=== PATIENT | male | born 2005 ===

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

== ENCOUNTER 2025-03-05 10:20 | Emergency (ER) | payer BC, SELFPAY ==
--- OUTSIDE RECORDS SUMMARY | 2007-04-06 13:00 | XMS_ITS | Encounter Summary ---
Author Organization [facility] ital Address [address] [place] [address] Care Team Providers Care Airline Operations Agent Name Role Phone Unavailable Primary Care Provider Unavailabl e Reason for Visit * Reason Comments Other AUTISM EVAL; Dept = [facility] Encounter Details Date Type Department Care Team (Late st Contact Info) Description 04/06/2007 11:00 AM [facility] Hospital Encounter H INACTIVE OUT [address] [place] [address] Pb Canas MD [address] Department of Pediatrics [address] [place] [address] Social History Tobacco Use Types Packs/Day Years Used Date Smoking Tobacco: Never Smokeless Tobacco: Never Alcohol Use Standard Drinks/Week Comments Not Asked 0 (1 standard drink = 0.6 oz pur e alcohol) [facility] Answer Date R ecorded School performance Not on file 01/04/2024 Issues with bullying or cyberbullying Not on louisa e 01/04/2024 School Other (not found in this list) 0 01/04/2024 Education services Not on file 01/04/2024 Grade level College 01/04/2024 Extracurricular activities Not on file 01/03 Sexual Activity Answer Date Recorded Has had sex or sexual contac t for money, place to stay, clothing/jewelry, drugs, pimp/partner, avoid being beaten? Not on file 02/08/2020 How often are condoms used Not on file 02/07 Has had sexually transmitted infections Not on f ile 02/08/2020 Has pt. ever had sex? Not on file 02/08/2020 Currently sexually active? Not on file 02/07 Number of lifetime partners Not on file 01/20 CRAFFT v2.1 Substance and Alcohol Use Screening Tool Answer Date Recorded Drank alcohol (last 12 months) Not on file 0 01/29/2023 Used marijuana product (last 12 months) Not on f ile 01/29/2023 Used other substances to get high (in last 12 mo nths) Not on file 01/29/2023 Has ridden in a CAR driven b y someone that was high or had been using drugs or alcohol Not on file 01/29/2023 Has used alcohol or drugs to RELAX Not on file 01/29/2023 Has used alcohol or drugs while ALONE Not on louisa e 01/29/2023 Has FORGOTTEN things while using alcohol or drug s Not on file 01/29/2023 FAMILY/FRIENDS have said to cut down on drinking or drug use Not on file 01/29/2023 Has gotten into TROUBLE while using alcohol or d rugs Not on file 01/29/2023 Tobacco & Vaping Answer Date Recorded Smoking Tobacco Use Never 02/08/2020 Smokeless Tobacco Use Never 02/08/2020 Vaping Use Not on file 02/08/2020 [facility] Answer Date Recorded Always wears a helmet when riding wheeled vehicl e? Yes 04/05/2020 Is there a cover/fence for pool/hot tub? Not on file 04/05/2020 Does the patient spend time in home where a gun is kept? No 04/05/2020 Are firearms secured in a safe place? Not on louisa e 04/05/2020 Always wears a seatbelt / car seat? Yes 04/05/2020 If your home has more than o ne floor, are there safety guards on the windows and godinez for the stairs Not on file 020 Are your medications stored in a safe, secure lo cation? Not on file 04/05/2020 Has patient ever witnessed o r been a victim of abuse or violence? No 04/05/2020 Parents marital status Not on file 0 Depression ([facility]) Answer Date Recorded Suicide/self harm diagnosis Not on file 11/20 Depression diagnosis Not on file 12/03/2023 Last High Risk PHQ (20+) Not on file 024 Last Medium Risk PHQ (10-19) Not on file Last Low PHQ (<10) Not on file 12/03/2023 Initial Screening Score (PHQ2) 0 0 12/03/2023 Sex and Gender Information Value Date Recorded Sex Assigned at Not on file Legal Sex Male 11:03 PM PST Gender Identity Not on file Sexual Orientation Not on file COVID-19 Exposure Response Date Recorded In the last 10 days, have yo u been in contact with someone who was confirmed or suspected to have Coronavirus/COVID-19? No / Unsure 05/19/2022 7:46 AM PST documented as of this encounter Plan of Treatment Not on file documented as of this encounter Visit Diagnoses Not on filedocumented in this encounter Additional Health Concerns Infection Onset Date Last Indicated Resolved Time COVID-19 Rule-Out 12/09/2019 12/09/2019 12/09/2019 4:21 PM PDT documented as of this encounter
--- OUTSIDE RECORDS SUMMARY | 2007-04-14 10:38 | XMS_ITS | Encounter Summary ---
[facility] ital Address [address] [place] [address] Care Team Providers Care Cna Name Role Phone Unavailable Primary Care Provider Unavailabl e Reason for Visit * Reason Comments Other SPEECH IMP Encounter Details Date Type Department Care Team (Late st Contact Info) Description 04/14/2007 8:38 AM PDT Hospital Encounter [facility] Main [address] [place], [place] [phone] Kesha Ricketts SP [address] [place], [place] [phone] (Fax) Social History Tobacco Use Types Packs/Day Years Used Date Smoking Tobacco: Never Smokeless Tobacco: Never Alcohol Use Standard Drinks/Week Comments Not Asked 0 (1 standard drink = 0.6 oz pur e alcohol) [facility] Answer Date R ecorded School performance Not [...] to get high (in last 12 mo nt) Not on file 01/29/2023 Has ridden in [...] Vaping Use Not on file 02/08/2020 Safety ([facility]) Answer Date Recorded Always wears a helmet [...] marital status Not on file 0 Depression ([facility]) Answer Date Recorded Suicide/self harm diagnosis Not [...]
--- OUTSIDE RECORDS SUMMARY | 2007-04-29 19:05 | XMS_ITS | Encounter Summary ---
Author Organization [facility] ital Address [address] [place] [address] Care Team Providers Care Bun Machine Operator Name Role Phone Unavailable Primary Care Provider Unavailabl e Reason for Visit * Reason Comments Other SPEECH IMP Encounter Details Date Type Department Care Team (Late st Contact Info) Description 04/29/2007 4:05 PM [facility] Hospital Encounter [facility] Main [address] [place], [place] [phone] Solange Campos (Inactive), SP [address] [place], [place] [phone] (Fax) Social History Tobacco Use Types Packs/Day Years Used Date Smoking Tobacco: Never Smokeless Tobacco: Never Alcohol Use Standard Drinks/Week Comments Not Asked 0 (1 standard drink = 0.6 oz pur e alcohol) Patient [facility] Answer Date R ecorded School performance Not [...] Vaping Use Not on file 02/08/2020 Safety ([facility] Answer Date Recorded Always wears a helmet [...] marital status Not on file 0 Depression ([facility] Answer Date Recorded Suicide/self harm diagnosis Not [...]
--- OUTSIDE RECORDS SUMMARY | 2007-05-03 13:30 | XMS_ITS | Encounter Summary ---
Author Organization [facility] ital Address [address] [place] [address] Care Team Providers Care Textile Machine Mechanic Name Role Phone Unavailable Primary Care Provider Unavailabl e Reason for Visit * Reason Comments Other SPEECH IMP Encounter Details Date Type Department Care Team ([facility] st Contact Info) Description 05/03/2007 10:30 AM [facility] Hospital Encounter Speech-Language Pathology [address] Miranda [address] [place] [address] Solange Campos (Inactive), SP [address] [place], [place] [phone] (Fax) Social History Tobacco Use Types Packs/Day Years Used Date Smoking Tobacco: Never Smokeless Tobacco: Never Alcohol Use Standard Drinks/Week Comments Not Asked 0 (1 standard drink = 0.6 oz pur e alcohol) Patient Education ([facility]CD) Answer Date R ecorded School performance Not [...] Vaping Use Not on file 02/08/2020 [facility] Answer Date Recorded Always wears [...] marital status Not on file 0 Depression ([facility] Answer Date Recorded Suicide/self harm [...]
--- OUTSIDE RECORDS SUMMARY | 2007-05-06 19:00 | XMS_ITS | Encounter Summary ---
Author Organization [facility] ital Address [address] [place] [address] Care Team Providers Care Hotel General Manager Name Role Phone Unavailable Primary Care Provider Unavailabl e Reason for Visit * Reason Comments Other SPEECH IMP Encounter Details Date Type Department Care Team ([facility] st Contact Info) Description 05/06/2007 4:00 PM [facility] Hospital Encounter Speech-Language Pathology [address] Miranda [address] [place] [address] Solange Campos (Inactive), SP [address] [place], [place] [phone] (Fax) Social History Tobacco Use Types Packs/Day [...] Vaping Use Not on file 02/08/[address] [facility] Answer Date Recorded Always [...] marital status Not on file [address] Depression ([facility] Answer Date Recorded Suicide/self [...]
--- OUTSIDE RECORDS SUMMARY | 2007-05-10 13:30 | XMS_ITS | Encounter Summary ---
Author Organization [facility] ital Address [address] [place] [address] Care Team Providers Care Color Separation Photographer Name Role Phone Unavailable Primary Care Provider Unavailabl e Reason for Visit * Reason Comments Other SPEECH IMP Encounter Details Date Type Department Care Team ([place] [facility] st Contact Info) Description 05/10/2007 10:30 AM [facility] Hospital Encounter Speech-Language Pathology [address] Miranda [address] [place] [address] Solange Campos (Inactive), SP [address] [place], [place] [phone] (Fax) Social History Tobacco Use Types Packs/Day [...] Vaping Use Not on file 02/08/2020 [facility] Answer Date Recorded Always wears a helmet [...] marital status Not on file 0 Depression ([facility]) Answer Date Recorded Suicide/self harm diagnosis Not [...]
--- OUTSIDE RECORDS SUMMARY | 2007-05-12 18:30 | XMS_ITS | Encounter Summary ---
Author Organization [facility] ital Address [address] [place] [address] Care Team Providers Care Steaming Machine Operator Name Role Phone Unavailable Primary Care Provider Unavailabl e Reason for Visit * Reason Comments Other SPEECH IMP Encounter Details Date Type Department Care Team ([facility] st Contact Info) Description 05/12/2007 3:30 PM [facility] Hospital Encounter Speech-Language Pathology [address] Miranda [address] [place] [address] Solange Campos (Inactive), SP [address] [place], [place] [phone] (Fax) Social History Tobacco Use Types Packs/Day [...] Vaping Use Not on file 02/08/2020 [facility] Answer Date Recorded Always wears a [...] marital status Not on file 0 Depression ([facility] Answer Date Recorded Suicide/self harm diagnosis Not [...]
--- OUTSIDE RECORDS SUMMARY | 2007-05-24 13:30 | XMS_ITS | Encounter Summary ---
Author Organization [facility] ital Address [address] [place] [address] Care Team Providers Care Microfiche Duplicator Name Role Phone Unavailable Primary Care Provider Unavailabl e Reason for Visit * Reason Comments Other SPEECH IMPAIRMENT Encounter Details Date Type Department Care Team ([facility] st Contact Info) Description 05/24/2007 10:30 AM [facility] Hospital Encounter Speech-Language Pathology [address] Miranda [address] [place] [address] Solange Campos (Inactive), SP [address] [place], [place] [phone] (Fax) Social History Tobacco Use Types Packs/Day [...] Vaping Use Not on file 02/08/2020 [facility] Answer Date Recorded Always wears a [...] marital status Not on file 0 Depression ([facility]) Answer Date Recorded Suicide/self harm diagnosis [...]
--- OUTSIDE RECORDS SUMMARY | 2007-05-27 18:00 | XMS_ITS | Encounter Summary ---
Author Organization [facility] ital Address [address] [place] [address] Care Team Providers Care Duck Farmer Name Role Phone Unavailable Primary Care Provider Unavailabl e Reason for Visit * Reason Comments Other SPEECH IMPAIRMENT Encounter Details Date Type Department Care Team ([facility] st Contact Info) Description 05/27/2007 3:00 PM [facility] Hospital Encounter Speech-Language Pathology [address] [address] Solange Campos (Inactive), SP [address] [place], [place] [phone] (Fax) Social History Tobacco Use Types Packs/Day [...] Vaping Use Not on file 02/08/2020 [facility] Answer Date Recorded Always wears a [...] marital status Not on file 0 Depression ([facility] Answer Date Recorded Suicide/self harm diagnosis [...]
--- OUTSIDE RECORDS SUMMARY | 2007-05-31 13:30 | XMS_ITS | Encounter Summary ---
Author Organization [facility] ital Address [address] [place] [address] Care Team Providers Care Assembler Erector Name Role Phone Unavailable Primary Care Provider Unavailabl e Reason for Visit * Reason Comments Other SPEECH IMPAIRMENT Encounter Details Date Type Department Care Team ([facility] st Contact Info) Description 05/31/2007 10:30 AM [facility] Hospital Encounter Speech-Language Pathology [address] Miranda [address] [place] [address] Solange Campos (Inactive), SP [address] [place] [address] [phone] (Fax) Social History Tobacco Use Types Packs/Day [...] Vaping Use Not on file 02/08/2020 Safety [facility] Answer Date Recorded Always wears a helmet [...] marital status Not on file 0 Depression ([facility]) Answer Date Recorded Suicide/self harm diagnosis Not [...]
--- OUTSIDE RECORDS SUMMARY | 2007-06-03 18:00 | XMS_ITS | Encounter Summary ---
Author Organization [facility] ital Address [address] [place] [address] Care Team Providers Care Barytes Grinder Name Role Phone Unavailable Primary Care Provider Unavailabl e Reason for Visit * Reason Comments Other SPEECH IMPAIRMENT Encounter Details Date Type Department Care Team ([facility] st Contact Info) Description 06/03/2007 3:00 PM [facility] Hospital Encounter Speech-Language Pathology [address] [address] Solange Campos (Inactive), SP [address] [place], [place] [phone] (Fax) Social History Tobacco Use Types Packs/Day [...] Vaping Use Not on file 02/08/2020 Safety ([facility] Answer Date Recorded Always [...] marital status Not on file 0 Depression ([facility]) Answer Date Recorded Suicide/self [...]
--- OUTSIDE RECORDS SUMMARY | 2007-06-07 13:30 | XMS_ITS | Encounter Summary ---
Author Organization [facility] Address [address] [place] [address] Care Team Providers Care Burnishing Machine Operator Name Role Phone Unavailable Primary Care Provider Unavailabl e Reason for Visit * Reason Comments Other SPEECH IMPAIRMENT Encounter Details Date Type Department Care Team ([facility] st Contact Info) Description 06/07/2007 10:30 AM [facility] Hospital Encounter Speech-Language Pathology [address] Miranda [address] [place] [address] Solange Campos (Inactive), SP [address] [place], [place] [phone] (Fax) Social History Tobacco Use Types Packs/Day [...] Vaping Use Not on file 02/08/2020 Safety [facility] Answer Date Recorded Always wears a helmet [...] marital status Not on file 0 Depression ([facility]) Answer Date Recorded Suicide/self harm diagnosis Not [...]
--- OUTSIDE RECORDS SUMMARY | 2007-06-23 21:03 | XMS_ITS | Encounter Summary ---
Author Organization [facility] ital Address [address] [place] [address] Care Team Providers Care Scrap Charger Name Role Phone Unavailable Primary Care Provider Unavailabl e Reason for Visit * Reason Comments Other SPEECH IMPAIRMENT Encounter Details Date Type Department Care Team ([facility] st Contact Info) Description 06/23/2007 6:03 PM [facility] Hospital Encounter Speech-Language Pathology [address] Miranda [address] [place] [address] Solange Campos (Inactive), SP [address] [place], [place] [phone] (Fax) Social History Tobacco Use Types Packs/Day [...] Vaping Use Not on file 02/08/2020 Safety [facility] Answer Date Recorded Always wears a [...] marital status Not on file 0 Depression ([facility] Answer Date Recorded Suicide/self harm diagnosis [...]
--- OUTSIDE RECORDS SUMMARY | 2007-06-28 13:30 | XMS_ITS | Encounter Summary ---
Author Organization [facility] ital Address [address] [place] [address] Care Team Providers Care French Instructor Name Role Phone Unavailable Primary Care Provider Unavailabl e Reason for Visit * Reason Comments Other SPEECH IMPAIRMENT Encounter Details Date Type Department Care Team ([facility] st Contact Info) Description 06/28/2007 10:30 AM [facility] Hospital Encounter Speech-Language Pathology [address] Miranda [address] [place] [address] Solange Campos (Inactive), SP [address] [place], [place] [phone] (Fax) Social History Tobacco Use Types Packs/Day [...] Vaping Use Not on file 02/08/2020 Safety [facility] Answer Date Recorded Always wears a [...] marital status Not on file 0 Depression ([facility] Answer Date Recorded Suicide/self harm diagnosis [...]
--- OUTSIDE RECORDS SUMMARY | 2007-06-30 19:30 | XMS_ITS | Encounter Summary ---
Author Organization [facility] ital Address [address] [place] [address] Care Team Providers Care Sanding Machine Tender Automatic Name Role Phone Unavailable Primary Care Provider Unavailabl e Reason for Visit * Reason Comments Other SPEECH IMPAIRMENT Encounter Details Date Type Department Care Team (Late st Contact Info) Description 06/30/2007 4:30 PM [facility] Hospital Encounter Speech-Language Pathology [address] Miranda [address] [place] [address] Solange Campos (Inactive), SP [address] [place], [place] [phone] (Fax) Social History Tobacco Use Types Packs/Day [...] marital status Not on file 0 Depression [facility] Answer Date Recorded Suicide/self harm diagnosis [...]
--- OUTSIDE RECORDS SUMMARY | 2007-07-05 13:30 | XMS_ITS | Encounter Summary ---
Author Organization [facility] ital Address [address] [place] [address] Care Team Providers Care Employment Coordinator Name Role Phone Unavailable Primary Care Provider Unavailabl e Reason for Visit * Reason Comments Other SPEECH IMPAIRMENT Encounter Details Date Type Department Care Team ([facility] st Contact Info) Description 07/05/2007 10:30 AM [facility] Hospital Encounter Speech-Language Pathology [address] Miranda [address] [place] [address] Solange Campos (Inactive), SP [address] [place], [place] [phone] (Fax) Social History Tobacco Use Types Packs/Day [...]
--- OUTSIDE RECORDS SUMMARY | 2007-08-30 16:00 | XMS_ITS | Encounter Summary ---
Author Organization [facility] ital Address [address] [place] [address] Care Team Providers Care Top Lift Compresser Name Role Phone Unavailable Primary Care Provider Unavailabl e Reason for Visit * Reason Comments Other PRT Encounter Details Date Type Department Care Team (Late st Contact Info) Description 08/30/2007 2:00 PM PDT [facility] [place] Main [address] [place] [address] Laura Espinosa, PhD [address] [facility] [address] [place] [phone] Social History Tobacco Use Types Packs/Day Years Used Date Smoking Tobacco: Never Smokeless Tobacco: Never Alcohol Use Standard Drinks/Week Comments Not Asked 0 (1 standard drink = 0.6 oz pur e alcohol) Patient Education ([facility]) Answer Date R ecorded School performance Not [...] Vaping Use Not on file 02/08/2020 Safety [facility] Answer Date Recorded Always [...] High Risk PHQ (20+) Not on file 06/13/2 024 Last Medium Risk PHQ (10-19) Not [...]
--- OUTSIDE RECORDS SUMMARY | 2007-09-13 16:00 | XMS_ITS | Encounter Summary ---
Author Organization [facility] ital Address [address] [place] [address] Care Team Providers Care Talent Development Consultant Name Role Phone Unavailable Primary Care Provider Unavailabl e Reason for Visit * Reason Comments Other PRT Encounter Details Date Type Department Care Team (Late st Contact Info) Description 09/13/2007 2:00 PM PDT [facility] [place] Main [address] [place] [address] Laura Espinosa, PhD [address] [facility] [address] [facility] [phone] Social History Tobacco Use Types Packs/Day Years [...] Vaping Use Not on file 02/08/2020 Safety [facility] Answer Date Recorded Always wears [...]
--- OUTSIDE RECORDS SUMMARY | 2007-09-20 16:00 | XMS_ITS | Encounter Summary ---
Author Organization [facility] ital Address [address] [place] [address] Care Team Providers Care Docket Specialist Name Role Phone Unavailable Primary Care Provider Unavailabl e Reason for Visit * Reason Comments Other PRT Encounter Details Date Type Department Care Team (Late st Contact Info) Description 09/20/2007 2:00 PM PDT [facility] [place] Main [address] [place] [address] Laura Espinosa, PhD [address] [facility] [address] [facility] [phone] Social History Tobacco Use Types Packs/Day Years [...] Vaping Use Not on file 02/08/2020 Safety [facility] Answer Date Recorded Always wears [...]
--- OUTSIDE RECORDS SUMMARY | 2007-10-04 16:00 | XMS_ITS | Encounter Summary ---
Author Organization [facility] ital Address [address] [place] [address] Care Team Providers Care Bleach Mixer Name Role Phone Unavailable Primary Care Provider Unavailabl e Reason for Visit * Reason Comments Other PRT Encounter Details Date Type Department Care Team (Late st Contact Info) Description 10/04/2007 2:00 PM PDT [facility] [place] Main [address] [place] [address] Laura Espinosa, PhD [address] [facility] [address] [facility] [phone] Social History Tobacco Use Types Packs/Day Years [...] Vaping Use Not on file 02/08/2020 Safety [facility] Answer Date Recorded Always wears a [...]
--- OUTSIDE RECORDS SUMMARY | 2007-10-11 16:00 | XMS_ITS | Encounter Summary ---
Author Organization [facility] ital Address [address] [place] [address] Care Team Providers Care Door Clamp Operator Name Role Phone Unavailable Primary Care Provider Unavailabl e Reason for Visit * Reason Comments Other PRT Encounter Details Date Type Department Care Team (Late st Contact Info) Description 10/11/2007 2:00 PM PDT [facility] [place] Main [address] [place] [address] Laura Espinosa, PhD [address] [facility] [address] Development[place] [phone] Social History Tobacco Use Types Packs/Day Years [...]
--- OUTSIDE RECORDS SUMMARY | 2007-10-18 16:00 | XMS_ITS | Encounter Summary ---
Author Organization [facility] ital Address [address] [place] [address] Care Team Providers Care Interior Design Program Chair Name Role Phone Unavailable Primary Care Provider Unavailabl e Reason for Visit * Reason Comments Other PRT Encounter Details Date Type Department Care Team (Late st Contact Info) Description 10/18/2007 2:00 PM PDT [facility] [place] Main [address] [place] [address] Laura Espinosa, PhD [address] [facility] [address] [place] [phone] Social History Tobacco Use Types Packs/Day Years Used Date Smoking Tobacco: Never Smokeless Tobacco: Never Alcohol Use Standard Drinks/Week Comments Not Asked 0 (1 standard drink = 0.6 oz pur e alcohol) Patient Education ([facility]) Answer Date R ecorded School performance Not on file 01/04/2024 Issues with bullying or cyberbullying Not on louias e 01/04/2024 School Other (not found in [...] Vaping Use Not on file 02/08/2020 [facility] Answer Date Recorded Always wears a [...]
--- OUTSIDE RECORDS SUMMARY | 2007-10-25 16:00 | XMS_ITS | Encounter Summary ---
Author Organization [facility] ital Address [address] [place] [address] Care Team Providers Care Manager Java Name Role Phone Unavailable Primary Care Provider Unavailabl e Reason for Visit * Reason Comments Other PRT Encounter Details Date Type Department Care Team (Late st Contact Info) Description 10/25/2007 2:00 PM PDT [facility] [place] Main [address] [place] [address] Laura Espinosa, PhD [address] [facility] [address] Developmental [place] [phone] Social History Tobacco Use Types Packs/Day Years [...] Use Not on file 02/08/2020 [facility] Answer Date Recorded Always wears a [...]
--- OUTSIDE RECORDS SUMMARY | 2007-11-01 16:00 | XMS_ITS | Encounter Summary ---
Author Organization [facility] ital Address [address] [place] [address] Care Team Providers Care Manager Audit Name Role Phone Unavailable Primary Care Provider Unavailabl e Reason for Visit * Reason Comments Other PRT Encounter Details Date Type Department Care Team (Late st Contact Info) Description 11/01/2007 2:00 PM PDT [facility] [place] Main [address] [place] [address] Laura Espinosa, PhD [address] [facility] [address] Developmental [place] [phone] Social History Tobacco Use Types Packs/Day Years [...] Vaping Use Not on file 02/08/2020 [facility] Answer Date Recorded Always wears a [...]
--- OUTSIDE RECORDS SUMMARY | 2007-11-08 16:00 | XMS_ITS | Encounter Summary ---
Author Organization [facility] ital Address [address] [place] [address] Care Team Providers Care Landing Scaler Name Role Phone Unavailable Primary Care Provider Unavailabl e Reason for Visit * Reason Comments Other PRT Encounter Details Date Type Department Care Team (Late st Contact Info) Description 11/08/2007 2:00 PM PDT [facility] [place] Main [address] [place] [address] Laura Espinosa, PhD [address] [facility] [address] Development[place] [phone] Social History Tobacco Use Types Packs/Day Years [...] Vaping Use Not on file 02/08/2020 [facility] Answer Date Recorded Always wears a helmet [...]
--- OUTSIDE RECORDS SUMMARY | 2008-07-11 14:00 | XMS_ITS | Encounter Summary ---
Author Organization [facility] ital Address [address] [place] [address] Care Team Providers Care Travel Ot Name Role Phone Unavailable Primary Care Provider Unavailabl e Reason for Visit * Reason Comments Other AUTISM PER SHANDRA Dill pt = PCPUCANDRA Encounter Details Date Type Department Care Team (Late st Contact Info) Description 07/11/2008 11:00 AM [facility] Hospital Encounter H INACTIVE OUT [address] [place] [address] Pb Canas MD [address] Department of Pediatrics [address] [place] [address] Social History Tobacco Use Types Packs/Day Years [...]
--- OUTSIDE RECORDS SUMMARY | 2008-08-14 12:23 | XMS_ITS | Encounter Summary ---
Author Organization [facility] Address [address] [place] [address] Care Team Providers Care Planning Associate Name Role Phone Unavailable Primary Care Provider Unavailabl e Reason for Visit * Reason Comments Other [facility] PCP REF CHILD D X WITH AUTISM BY PCP Encounter Details Date Type Department Care Team (Late st Contact Info) Description 08/14/2008 9:23 AM [facility] Hospital Encounter [facility] Developmental Evaluation Clinic Main [address] [place], [place] [phone] Shakila Rolle, PhD [address] [facility] [address] [place], [place] [phone] Social History Tobacco Use Types Packs/Day Years [...] Vaping Use Not on file 02/08/2020 [facility] Answer Date Recorded Always wears [...]
--- OUTSIDE RECORDS SUMMARY | 2008-08-18 12:09 | XMS_ITS | Encounter Summary ---
Author Organization [facility] ital Address [address] [place] [address] Care Team Providers Care Technology Strategist Name Role Phone Unavailable Primary Care Provider Unavailabl e Reason for Visit * Reason Comments Other AUTISM Encounter Details Date Type Department Care Team (Late st Contact Info) Description 08/18/2008 9:09 AM [facility] Hospital Encounter [facility] Speech Language Main [address] [place], [place] [phone] Jasmyne Aguilar, TURN OUT [address] [facility] [address] SPEECH PATHOLOGY [place], [place] [phone] (Fax) Social History Tobacco Use Types Packs/Day Years Used Date Smoking Tobacco: Never Smokeless Tobacco: Never Alcohol Use Standard Drinks/Week Comments Not Asked 0 (1 standard drink = 0.6 oz pur e alcohol) [facility] Answer Date R ecorded School performance Not [...] Vaping Use Not on file 02/08/2020 Safety ([facility] Answer Date Recorded Always wears a helmet [...]
--- OUTSIDE RECORDS SUMMARY | 2008-08-30 15:03 | XMS_ITS | Encounter Summary ---
Author Organization [facility] ital Address [address] [place] [address] Care Team Providers Care Boiler Maker Name Role Phone Unavailable Primary Care Provider Unavailabl e Reason for Visit * Reason Comments Other CONSTIPATION (WANTS ONLY & ANDRA ONLY) Encounter Details Date Type Department Care Team (Latest Contact Info) Description 08/30/2008 1:03 PM PDT Hospital Encounter [facility] Gastroenterology Main [address] [facility] 2nd Floor [place], [place] [phone] Debbi Johnson MD [address] [facility] [place] [address] Social History Tobacco Use Types Packs/Day Years [...]
--- OUTSIDE RECORDS SUMMARY | 2008-08-30 15:03 | XMS_ITS | Encounter Summary ---
[facility] Address [address] [place] [address] Care Team Providers Care Basketballs And Footballs Reverser Name Role Phone Unavailable Primary Care Provider Unavailabl e Reason for Visit * Reason Comments Other CONSTIPATION (WANT[place] DR ONLY & [place] ONLY); Dept = [facility] Encounter Details Date Type Department Care Team (Late st Contact Info) Description 08/30/2008 1:03 PM PDT Hospital Encounter H INACTIVE OUT [address] [place], [place] [phone] Debbi Johnson MD [address] [facility] [address] [place], [place] [phone] Social History Tobacco Use Types Packs/Day Years [...]
--- OUTSIDE RECORDS SUMMARY | 2025-02-17 17:30 | XMS_ITS | Encounter Summary ---
Author Organization [facility] [facility] [place] [facility] [place] and [facility] Address [address] [place] [address] Care Team Providers Care Machine Sweeper Brush Maker Name Role Phone AzucenaFermin rodriges Sanam BEY Primary Care Provider +1 [phone] Encounter Details Date Type Department Care Team (Late st Contact Info) Description 02/17/2025 3:30 PM PDT Clinic Lab [facility] [address] [place] [address] Routine health maintenance Social History Tobacco Use Types Packs/Day Years Used Date Smoking Tobacco: Never Alcohol Use Standard Drinks/Week Comments Never 0 (1 standard drink = 0.6 oz pur e alcohol) Depression Answer Date Recorded PHQ 2/9 Score 0 01/06/2024 Drug Use (DAST) Answer Date Recorded DAST Total Score 0 01/06/2024 Sex and Gender Information Value Date Recorded Sex Assigned at Not on file Legal Sex Male 9:21 AM PST Gender Identity Not on file Sexual Orientation Not on file documented as of this encounter Plan of Treatment Not on file documented as of this encounter Procedures Procedure Name Priority Date/Time Associated Diagnosis Comments VITAMIN D, 25-OH TOTAL Routine 3:33 PM PDT Routine health maintenance CBC WITH DIFF, BLOOD Routine 02/17/2025 3:33 PM PDT Routine health maintenance FERRITIN, BLOOD Routine 02/17/2025 3:33 PM PDT Routine health maintenance COMPREHENSIVE METABOLIC PANEL, BLOOD Routine 02/17/2025 3:33 PM PDT Routine health maintenance documented in this encounter Results * CBC w/ Diff Lavender (02/17/2025 3:33 PM PDT) WBC 6.8 4.0 - 10.0 1000/mm3 02/17/2025 4:34 PM PDT [facility] RBC 5.17 4.60 - 6.10 mill/mm3 02/17/2025 4:34 PM PDT [facility] Hgb 14.8 13.7 - 17.5 gm/dL 02/17/2025 4:34 PM PDT [facility] Hct 43.9 40.0 - 50.0 % 02/17/2025 4:34 PM PDT [facility] MCV 84.9 79.0 - 95.0 um3 02/17/2025 4:34 PM PDT [facility] MCH 28.6 26.0 - 32.0 pgm 02/17/2025 4:34 PM PDT [facility] MCHC 33.7 32.0 - 36.0 g/dL 02/17/2025 4:34 PM PDT [facility] RDW 12.4 12.0 - 14.0 % 02/17/2025 4:34 PM PDT [facility] MPV 10.9 9.4 - 12.4 fL 02/17/2025 4:34 PM PDT [facility] Plt Count 188 140 - 370 1000/mm3 02/17/2025 4:34 PM PDT [facility] Segs 53.0 % 02/17/2025 4:34 PM PDT [facility] Imm Gran % 0.4 <1 % 02/17/2025 4:34 PM PDT [facility] Lymphocytes 34.7 % 02/17/2025 4:34 PM PDT [facility] Monocytes 8.4 % 02/17/2025 4:34 PM PDT [facility] Eosinophils 2.6 % 02/17/2025 4:34 PM PDT [facility] Basophils 0.9 % 02/17/2025 4:34 PM PDT [facility] ANC-Automated 3.6 1.6 - 7.0 1000/mm3 02/17/2025 4:34 PM PDT [facility] Imm Gran Abs 0.0 <0.1 1000/mm3 02/17/2025 4:34 PM PDT [facility] Abs Lymphs 2.4 0.8 - 3.1 1000/mm3 02/17/2025 4:34 PM PDT [facility] Abs Monos 0.6 0.2 - 0.8 1000/mm3 02/17/2025 4:34 PM PDT [facility] Abs Eosinophils 0.2 0.0 - 0.5 1000/mm3 02/17/2025 4:34 PM PDT [facility] Abs Basophils 0.1 <0.2 1000/mm3 02/17/2025 4:34 PM PDT [facility] Diff Type Automated 02/17/2025 4:34 PM PDT [facility] Blood 02/17/2025 3:33 PM PDT 02/17/2025 4:23 PM PDT Fermin Townsend DO LAB BLOOD Final Resul t [facility] See Result [phone] [facility] [address] [place] [address] * Comprehensive Metabolic Panel (CMP) (02/17/2025 3:33 PM PDT) [facility] Glucose 83 70 - 99 mg/dL 02/17/2025 9:24 PM PDT [facility] BUN 19 6 - 20 mg/dL 02/17/2025 9:24 PM PDT [facility] Creatinine 0.74 0.67 - 1.17 mg/dL 02/17/2025 9:24 PM PDT [facility] eGFR Based on CKD-EPI 2020 Equation >60 mL/min/1.7 3 m2 02/17/2025 9:24 PM PDT [facility] Comment: This is an estimated glomerular filtration rate (mL/min/1.73 m2) based on the CKD-EPI 2020 equation. CKD Stage 3: GFR 30-59 CKD Stage 4: GFR 15-29 CKD Stage 5: GFR < 15 or dialysis dependent Sodium 139 136 - 145 mmol/L 02/17/2025 9:24 PM PDT [facility] Potassium 4.2 3.5 - 5.1 mmol/L 02/17/2025 9:24 PM PDT [facility] Chloride 100 98 - 107 mmol/L 02/17/2025 9:24 PM PDT [facility] Bicarbonate 25 22 - 29 mmol/L 02/17/2025 9:24 PM PDT [facility] Anion Gap 14 7 - 15 mmol/L 02/17/2025 9:24 PM PDT [facility] Calcium 9.7 8.5 - 10.6 mg/dL 02/17/2025 9:24 PM PDT [facility] Total Protein 7.5 6.0 - 8.0 g/dL 02/17/2025 9:24 PM PDT [facility] Albumin 4.7 3.5 - 5.2 g/dL 02/17/2025 9:24 PM PDT [facility] Bilirubin, Tot 0.30 <1.2 mg/dL 02/17/2025 9:24 PM PDT [facility] AST (SGOT) 25 0 - 50 U/L 02/17/2025 9:24 PM PDT [facility] ALT (SGPT) 16 0 - 50 U/L 02/17/2025 9:24 PM PDT [facility] Alkaline Phos 53 40 - 129 U/L 02/17/2025 9:24 PM PDT [facility] Blood PERIPHERAL BLOOD / Unknown 02/17/2025 3:33 PM PDT 02/17/2025 7:56 PM PDT us Fermin Townsend DO LAB BLOOD Edited Resu lt - Final [facility] See Result [phone] [facility] [address] [place] [address] * Ferritin, Blood Green Plasma Separator Tube (02/17/2025 3:33 PM PDT) Ferritin 100 30 - 400 ng/mL 02/17/2025 9:24 PM PDT [facility] Blood 02/17/2025 3:33 PM PDT 02/17/2025 7:56 PM PDT Fermin Townsend LAB BLOOD Final Resul t [facility] See Result [phone] [facility] [address] [place] [address] * Vitamin D, 25-OH Total Yellow serum separator tube (02/17/2025 3:33 PM PDT) Vitamin D, 25-Hydroxy 32 30 - 80 ng/mL 02/17/2025 8:41 PM PDT [facility] Comment: Interpretive comments: Vitamin D,25-OH Total <= 20 ng/mL is considered deficient Vitamin D,25-OH Total between 21 and 29 ng/mL is considered insufficient Vitamin D,25-OH Total => 30 ng/mL is considered sufficient Vitamin D,25-OH Total => 150 ng/mL is considered potentially toxic Blood 02/17/2025 3:33 PM PDT 02/17/2025 7:56 PM PDT Fermin Townsend LAB BLOOD Final Resul t Performing Organization Address City/[facility]/ZIP Co de Phone Number [facility] See Result [phone] [facility] [address] [place] [address] documented in this encounter Visit Diagnoses Diagnosis Routine health maintenance Routine general medical examination at a health care facility documented in this encounter Additional Health Concerns Assessment Noted Time A fall risk assessment has been complete d for the patient 05/24/2024 2:46 PM PST documented as of this encounter Care Teams Machine Sweeper Brush Maker Relationship Specialty Start Date End Date Fermin Townsend [address] [facility] [address] [place] [address] PCP - General Family Practice 05/24/21 documented as of this encounter
[2025-03-05] VITALS (14 sets, daily range): BP systolic 109–112; BP diastolic 73–79; PULSE 62–70; RESP 5–25; TEMP 37.2; O2SAT 97–99; BMI 18.2
--- OUTSIDE RECORDS SUMMARY | 2025-03-05 10:23 | XMS_ITS | Encounter Summary ---
Author Organization [facility] [facility] [place] [facility] [place] and [facility] Address [address] [place] [address] Care Team Providers Care Loan Coordinator Name Role Phone Fermin Townsend DO Primary Care Provider [phone] Encounter Details Date Type Department Care Team (Late st Contact Info) Description 02/12/2025 MyChart [facility] [address] [facility] [place] [address] Fermin Townsend DO [address] [place] [phone] Social History Tobacco Use Types Packs/Day Years [...] on file documented as of this encounter Results * Vitamin D, 25-OH Total Yellow serum [...] 3:33 PM PDT 02/17/2025 7:56 PM PDT [facility] LAB BLOOD Final Resul t Performing Organization Address City/[facility]/ZIP Co de Phone Number [facility] [employer] See Result [phone] [facility] [address] [place] [address] * Ferritin, Blood Green Plasma Separator Tube (02/17/2025 3:33 PM PDT) Ferritin 100 30 - 400 ng/mL 02/17/2025 9:24 PM PDT [facility] Blood 02/17/2025 3:33 PM PDT 02/17/2025 7:56 PM PDT [facility] LAB BLOOD Final Resul t Performing Organization Address City/[facility] Co de Phone Number [facility] [employer] See Result [phone] [facility] [address] [place] [address] * Comprehensive Metabolic Panel (CMP) (02/17/2025 3:33 PM PDT) Glucose 83 70 - 99 mg/dL 02/17/2025 [...] LAB BLOOD Edited Resu lt - Final [facility] See Result [phone] [facility] [address] [place] [address] * CBC w/ Diff Lavender (02/17/2025 3:33 [...] PM PDT 02/17/2025 4:23 PM PDT Fermin Zengzahira DO LAB BLOOD Final Resul t [facility] See Result [phone] [facility] [address] [place] [address] documented in this encounter Visit Diagnoses Diagnosis Routine health maintenance- Primary Routine general medical examination at a health care facility documented in this encounter Additional Health Concerns Assessment Noted Time A fall risk assessment has been complete d for the patient 05/24/2024 2:46 PM PST documented as of this encounter Care Teams Loan Coordinator Relationship Specialty Start Date End Date Fermin Townsend DO [address] [facility] [address] [place] [phone] PCP - General Family Practice 05/24/21 documented as of this encounter
--- OUTSIDE RECORDS SUMMARY | 2025-03-05 10:23 | XMS_ITS | Clinical Summary ---
Author Organization [facility] [place] ([place] / [place] / [place]) and Affiliates Address [address] [place] [address] Care Team Providers Care Block Machine Operator Name Role Phone AzucenaFermin rodriges Sanam BEY Primary Care Provider [phone] Allergies No known active allergies Medications adapalene-benzoy l peroxide (EPIDUO) 0.1-2.5 % gel Apply 1 Application topically daily. Use a small amount as directed Active adapalene (DIFFERIN) 0.1 % cream Apply 1 Application topically nightly. Use a small amount as directed Active albuterol 108 (90 Base) MCG/ACT inhalerIndicatio ns:Mild intermittent asthma without complication Inhale 2 puffs by mouth every 6 hours as needed for Wheezing. 1 each 3 2 Active budesonide-formo terol (SYMBICORT) 80-4.5 MCG/ACT inhalerIndicatio ns:Shortness of breath Inhale 2 puffs by mouth every 12 hours. 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 [place] [address] Fermin Townsend DO 02/12/2025 MyChart [facility] [address] [place] [address] Fermin Townsend DO from Last 3 Months Immunizations Immunization Administration Dates Next Due (Chicken Pox) Varicella Live Vaccine 05/14/2009, 03/10/2006 COVID-19 (Pfizer) Purple Cap >= 12 Years 06/17/2021,12/07/2020,11/09/2020 DTaP 05/14/2009, 6,2005,07/08,2005 H1N1 Vaccine 07/03/2009,03/30/2009 HPV-9 Vaccine (GARDASIL-9) 04/05/2020,01/06/2019 Haemophilus Vaccine 06/11/2006, 6,2005,04/24 Hep-A Ped/Adol 2 Dose Schedule 04/06/2008,2006 Hepatitis B vaccine (adult 2 0 yrs and older) 2005,2005,2005 Inactivated Polio Vaccine (IPV) 05/15/20 09,05/14/2009,2005,07/08 Influenza Vaccine (Unspecified) 04/09/20 17,05/02/2016,05/02/2013,04/06 Influenza Vaccine >=6 Months 03/04/2022, 04/01/2021,03/16/2020,04/28,05/29/2018,04/09/2017,05/02/2016 ,05/30/2015 Influenza Vaccine >=6 Months , [id number] 05/24/2024 Influenza Vaccine, Nasal Quadrivalent ,04/29/2014,04/12/2012,06/07,07/03/2009,03/30/2009 MMR Live Vaccine 05/14/2009,03/10/2006 Meningococcal Conjugate ACWY-Menactra 12/27/2021 ,01/04/2018 Meningococcal Vaccine 01/04/2018 Pneumococcal 13 Vaccine (PREVNAR-13) ,2005,2005,04/24 Tdap 01/04/2018 Typhoid PO vaccine (live) 05/22/2017 Family History Relation Status Comments Brother 1 Alive Brother 2 Alive Father Alive M Grandfather Alive M Grandmother Alive Mother Alive P Grandfather P Grandmother Alive Social History Tobacco Use Types Packs/Day Years Used Date Smoking Tobacco: Never Tobacco Cessation:Counseling Given: No Alcohol Use Standard Drinks/Week Comments Never 0 [...] on file Sexual Orientation Not on file Last Filed Vital Signs Vital Sign Reading Time Taken Comments Blood Pressure 104/67 05/24/2024 2:46 PM PST Pulse 70 05/24/2024 2:46 PM PST Temperature 36.4 C (97.5 F) 05/24/2024 2:46 PM PST Respiratory Rate 16 05/24/2024 2:46 PM PST Oxygen Saturation 96% 05/24/2024 2:46 PM PST Inhaled Oxygen Concentration - - Weight 62.5 kg (137 lb 12.6 oz) 05/24/2024 2:46 PM PST Height 180.3 cm (5' 11) 05/24/2024 2:46 PM PST Body Mass Index 19.22 05/24/2024 2:46 PM PST Plan of Treatment Health Maintenance Due Date Last Done Comments Pneumococcal Vaccine (1 of 1 - PPSV23, PCV20, or PCV21) 2011 03/10/2006, 03/10/2006, 2005, Additional history exists Meningococcal B (1 of 2 - Standard) 2021 PHQ2 depression screen 07/08/2024 01/06/2024 Influenza (#1) 2025 05/24/2024, 02/20, 04/01/2021, Additional history exists COVID-19 Vaccine (6 - 2024-2 6 season) 2025 06/13/2023, 04/12/2022, 06/17/2021, Additional history exists Tetanus (8 - Td or Tdap) 01/05/2034 024, 01/04/2018, 05/14/2009, Additional history exists Shingles Vaccine (1 of 2) 2055 05/14/2009, Hep A Vaccine Series Completed 04/06/2008, 02/17/20 07 Polio Vaccine Completed 05/15/2009, 04/23, 2005, Additional history exists HPV Vaccine <= 26 Yrs Completed 04/05/2020, 019 Meningococcal MCV4 Vaccine Completed 12/27, 01/04/2018, 01/04/2018 Cholesterol Screening (Ages: 9-11 & 17-21) Completed 10/02/2023 Adult [facility] Completed 05/31/2024 Hepatitis C Screening Completed 05/31/2024 Minor [facility] Completed 05/31/2024 [place] HIV Screening [facility] Completed Procedures Procedure Name Priority Date/Time Associated Diagnosis Comments CBC WITH DIFF, BLOOD Routine 02/17/2025 3:33 PM PDT Routine health maintenance COMPREHENSIVE METABOLIC PANEL, BLOOD Routine 02/17/2025 3:33 PM PDT Routine health maintenance FERRITIN, BLOOD Routine 02/17/2025 3:33 PM PDT Routine health maintenance VITAMIN D, 25-OH TOTAL Routine 3:33 PM PDT Routine health maintenance HIV 1/2 ANTIBODY & P24 ANTIGEN ASSAY, BLOOD Routine 05/31/2024 4:34 PM PST Encounter for screening for HIV HB HEPATITIS C ANTIBODY Routine 05/31/2024 4:34 PM PST Need for hepatitis C screening test LIPID(CHOL FRACT) PANEL, BLOOD Routine 10/02/2023 1:32 PM PDT Fatigue, unspecified type Low energy from Last 3 Months or Most Recently Relevant to Health Maintenance Results * Vitamin D, 25-OH Total Yellow serum separator tube (02/17/2025 3:33 PM PDT) Pathologist [facility] Vitamin D, 25-Hydroxy 32 30 - 80 [...] PDT 02/17/2025 7:56 PM PDT Fermin Townsend DO LAB BLOOD Final Resul t [facility] See Result [id number] [facility] [address] [place] [address] * CBC w/ Diff Lavender (02/17/2025 3:33 PM PDT) Pathologist [facility] WBC 6.8 4.0 - 10.0 1000/mm3 02/17/2025 [...] 3:33 PM PDT 02/17/2025 4:23 PM PDT us Fermin Townsend DO LAB BLOOD Final Resul t [facility] See Result [id number] [facility] [address] [place] [address] * Ferritin, Blood Green Plasma Separator Tube (02/17/2025 3:33 PM PDT) Ferritin 100 30 - 400 ng/mL 02/17/2025 9:24 PM PDT [facility] Blood 02/17/2025 3:33 PM PDT 02/17/2025 7:56 PM PDT us Fermin Townsend DO LAB BLOOD Final Resul t [facility] See Result [id number] [facility] [address] [place] [address] * Comprehensive Metabolic Panel (CMP) (02/17/2025 3:33 PM PDT) Pathologist [facility] Glucose 83 70 - 99 mg/dL 02/17/2025 [...] 3:33 PM PDT 02/17/2025 7:56 PM PDT [facility] DO LAB BLOOD Edited Resu lt - Final [facility] [employer] See Result [id number] [facility] [id number] [place] [address] * HCV Antibody with Reflex Quant 2 Serum Separator Tubes (05/31/2024 4:34 PM PST) Hepatitis C Ab Non Reactive Non Reactive 05/31/2024 8:07 PM PST [facility] Comment: This result has been reported to the [facility] Epidemiology [facility] as required by the [place] Code of Regulations, Title 17, Section 2505. Blood 05/31/2024 4:34 PM PST 05/31/2024 7:08 PM PST [facility] DO LAB MICRO Final Resul t [facility] See Result [id number] [facility] [address] [place] [address] * HIV 1/2 Antibody & P24 Antigen Assay (05/31/2024 4:34 PM PST) [facility] HIV 1/2 Antibody & P24 Antigen Assay Non Reactive 05/31/2024 8:10 PM PST [facility] Comment: Expected result is Non Reactive. IMPORTANT NOTICE: These HIV results may be released to the patient's providers of health care (does not include health care service plans). Any other release must be with the patient's written authorization or as otherwise permitted by law. Unauthorized disclosures may be a misdemeanor or punishable by a civil monetary penalty. Post-test counseling available at [phone] Blood 05/31/2024 4:34 PM PST 05/31/2024 7:08 PM [facility] Fermin Townsend DO LAB BLOOD Final Resul t [facility] See Result [id number] [facility] [address] [place] [address] * Lipid Panel Green Plasma Separator Tube (10/02/2023 1:32 PM PDT) [facility] Cholesterol 144 <200 mg/dL 10/02/2023 7:01 PM PDT [facility] Comment: Borderline Risk 200-240 mg/dL High Risk > 240 mg/dL HDL-Cholesterol 68 mg/dL 7:01 PM PDT [facility] Comment: An HDL Cholesterol <40 mg/dL is a risk factor for coronary heart disease. LDL-Chol (Calc) 57 <160 mg/dL 7:01 PM PDT [facility] Non-HDL Cholesterol 76 mg/dL 10/01 7:01 PM PDT [facility] Comment: NonHDL Cholesterol target concentrations for lipid lowering depend on patients risk and are typically 30 mg/dL higher than LDL targets. Triglycerides 94 10 - 170 mg/dL 10/02/2023 7:01 PM PDT [facility] Blood specimen (specimen) 10/02/2023 1:32 PM PDT 10/02/2023 6:30 PM PDT Sofia Marylu David DO LAB BLOOD Edited Result - Final [facility] See Result [id number] [facility] [address] [place], [place] [phone] from Last 3 Months or Most Recently Relevant to Health Maintenance Insurance [facility] Care Teams Block Machine Operator Relationship Specialty Start Date End Date Fermin Townsend DO [address] [place] [phone] PCP - General Family Practice 05/24/21
--- OUTSIDE RECORDS SUMMARY | 2025-03-05 10:23 | XMS_ITS | Encounter Summary ---
Author Organization [facility] ([place] / [place] / [place]) and Affiliates Address [address] [place] [address] Care Team Providers Care Stevedoring Supervisor Name Role Phone Fermin Townsend DO Primary Care Provider [phone] Encounter Details Date Type Department Care Team (Late st Contact Info) Description 02/17/2025 MyChart [facility] [address] [place] [address] Fermin Townsend DO [address] [place] [phone] Social History Tobacco Use Types Packs/Day Years [...] filedocumented in this encounter Additional Health Concerns Assessment Noted Time A fall risk assessment has been complete d for the patient 05/24/2024 2:46 PM PST documented as of this encounter Care Teams Stevedoring Supervisor Relationship Specialty Start Date End Date Fermin Townsend DO [address] [facility] [address] [place] [phone] PCP - General Family Practice 05/24/21 documented as of this encounter
--- OUTSIDE RECORDS SUMMARY | 2025-03-05 10:24 | XMS_ITS | Encounter Summary ---
Author Organization [facility] ([place] / [place] / [place]) and Affiliates Address [address] [place] [address] Care Team Providers Care Data Conversion Operator Name Role Phone Fermin Townsend DO Primary Care Provider Encounter Details Date Type Department Care Team (Late st Contact Info) Description 10/31/2021 Scanned Document [facility] HOSE CEMENTER Social History Tobacco Use Types Packs/Day Years Used Date Smoking Tobacco: Never Assessed Sex and Gender Information Value Date Recorded [...] has been complete d for the patient 07/16/2021 3:57 PM PST documented as of this encounter Care Teams Data Conversion Operator Relationship Specialty Start Date End Date Fermin Townsend DO [address] [place] [phone] PCP - General Family Practice 05/24/21 documented as of this encounter
--- OUTSIDE RECORDS SUMMARY | 2025-03-05 10:24 | XMS_ITS | Clinical Summary ---
Author Organization [facility] Address [address] [place] [address] Care Team Providers Care Accountant Tax Name Role Phone Fermin Townsend DO Primary Care Provider Dawood castro Allergies Active Allergy Reactions Criticality Noted Date Comments Amoxicillin 12/08/2011 Medications adapalene (Differin) 0.1 % Topical Cream Apply topically Nightly. Active budesonide-form oterol fumarate (Symbicort) 80-4.5 MCG/ACT inhaler Inhale 2 Puffs by mouth every 12 hours. 2 Active loratadine (Claritin) Oral Tablet Take 10 mg by mouth daily as needed for Allergies. Active Fluticasone Propionate (FLONASE NA) by Nasal route. 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 Eczema 08/12/2011 Active autistic disorder 10/26/2010 Allergic rhinitis 08/24/2009 Resolved Problems Problem Noted Date Diagnosed Date Resolved Date Congenital curly toes 10/20/20112011 Constipation 10/20/2011 01/04/2018 Overview (03/23/2023): 2022 Regulatory Import Croup 05/08/2011 01/04/2018 Immunizations Immunization Administration Dates Next Due DTaP 05/14/2009, 6,2005,07/08,2005 Dtap, (Historical/Unspecified) 9,06/11/2006,2005,07/08,2005 H1N1 Vaccine (INFLUENZA) 07/03/2009,03/30/2009 HPV-9 Valent 04/05/2020,01/06/2019 Hep A,ped/adol, 2 Dose 04/06/2008,02/16/2007 Hep B (Historical/Unspecified) 2005,2005,2005 Hepatitis A, Pediatric (Historical/Unspecified) 04/06/2008,02/16/2007 Hepatitis B Adult 2005,2005,04/24/20 05 Hib (Historical/Unspecified) 06/11/2006, 2005,2005,04/24 IPV 05/15/2009, 9,2005,07/08 Influenza Quadrivalent Prese rvative Free 0.5ml 03/04/2022,04/01/2021,03/16/2020,04/28,05/29/2018,04/09/2017,05/02/2016 ,05/30/2015 Influenza, (Historical/Unspecified) 03/22,05/02/2016,05/02/2013,04/06 Influenza,live, Intranasal, Quadrivalent 05/30/2015,04/29/2014,04/12/2012,06/07,07/03/2009,03/30/2009 Influenza,nasal, (Historical/unspecified) 05/30/2015,04/29/2014,04/12/2012,06/07,07/03/2009,03/30/2009 MMR 05/14/2009,03/10/2006 Meningococcal (Historical/Unspecified) 2 Meningococcal A,c,y,w-135 Di ptheria Conjugate 01/04/2018 Meningococcal Conjugate 01/04/2018 Novel Influenza [id number], All Formulations 07/03/2009,03/30/2009 Oral Typhoid 05/22/2017 Pneumococcal Conjugate Vacci ne 13-Valent 03/10/2006,2005,2005,04/24 Pneumococcal, (Historical/Unspecified) 0 03/10/2006,2005,2005,04/24 Tdap 01/04/2018 Varicella 05/14/2009,03/10/2006 Family History Medical History Relation Comments Allergic Rhinitis Brother 1 Asthma Brother 1 Eczema Brother 1 Refractive Error Brother 1 Scoliosis Brother 1 Sinus Surgery Brother 1 septal Sx Allergic Rhinitis Brother 2 Asthma Brother 2 Allergic Rhinitis Father Claritin, Aste suzie prn Asthma Father Alb prn Eczema Father Other Father Covid-19 +11/2021 ; tendon repair, lumbar disk Sx Refractive Error Father Cataract Maternal Grandfather Refractive Error Maternal Grandfather Cataract Maternal Grandmother Eczema Maternal Grandmother Refractive Error Maternal Grandmother Allergic Rhinitis Mother Astelin Asthma Mother Symbicort prn 1- 2x/week Eczema Mother Eye Surgery Mother Other Mother Covid-11/2019 Refractive Error Mother Respiratory disease Mother Pneumonia Strabismus Mother Refractive Error Paternal Grandfather Asthma Paternal Grandmother Refractive Error Paternal Grandmother Anesth Problems Neg Hx Melanoma Neg Hx Skin Cancer Neg Hx Relation Status Comments Brother 1 Brother 2 Alive Father Maternal Grandfather Maternal Grandmother Mother Alive Paternal Grandfather Paternal Grandmother Social History Tobacco Use Types Packs/Day Years Used Date Smoking Tobacco: Never Smokeless Tobacco: Never Alcohol Use Standard Drinks/Week Comments Not Asked 0 (1 standard drink = 0.6 oz pur e alcohol) Patient Education ([facility]) Answer Date R ecorded School [...] marital status Not on file 0 Depression ([facility]) Answer Date Recorded Suicide/self harm diagnosis Not on file 06/1 08/2023 Depression diagnosis Not on file 12/03/2023 Last [...] Sign Reading Time Taken Comments Blood Pressure 123/80 01/04/2024 9:10 AM PDT Pulse 72 01/04/2024 9:10 AM PDT Temperature 36.7 C (98.1 F) 01/04/2024 9:10 AM PDT Respiratory Rate 20 12/11/2011 4:48 PM PDT Oxygen Saturation 98% 01/04/2024 9:10 AM PDT Inhaled Oxygen Concentration - - Weight 61.5 kg (135 lb 9.3 oz) 01/04/2024 9:10 A M PDT Height 181.8 cm (5' 11.58) 01/04/2024 9:10 AM P DT Body Mass Index 18.61 01/04/2024 9:10 AM PDT Plan of Treatment Health Maintenance Due Date Last Done Comments Caregiver Literacy Screening 2005 Caregiver Stress Screening 2005 Food Insecurity Screening 2005 Housing Needs Screening 2005 Primary Care Lipid Panel Test 2005 Transportation Needs Screening 2005 Adolescent Substance Use Screening 2017 COVID-19 Vaccine ( season) 2025 06/13/2023, 04/12/2022, 06/17/2021, Additional history exists Seasonal Influenza Vaccine (#1) 2025 03/04/2023, 03/04/2022, 04/01/2021, Additional history exists DTaP/Tdap/Td Vaccines (7 - Td or Tdap) 01/05/2028 01/04/2018, 05/14/2009, 05/14/2009, Additional history exists Hepatitis B Vaccine Completed 2005, 2005, 2005, Additional history exists Pneumococcal Vaccine Aged Out 03/10/2006, 03/10/2006, 2005, Additional history exists No longer eligible based on patient's age to complete this topic Hepatitis A Vaccine Completed 04/06/2008, 04/06/2008, 02/16/2007, Additional history exists MMR Vaccine Completed 05/14/2009, 03/10/2006 Varicella Vaccine Completed 05/14/2009, 03/10/2006 Polio Vaccine (IPV) Completed 05/15/2009, 05/14/2009, 2005, Additional history exists HPV Vaccine Completed 04/05/2020, 01/06/2019 Well Child Check Reminder 3-17 Years Discontinued 04/05/2020, 01/06/2019, 01/06/2019, Additional history exists Meningococcal Vaccine Completed 12/27/2021 , 01/04/2018, 01/04/2018 Rotavirus Vaccine Aged Out No longer eligible based on patient's age to complete this topic Insurance [employer] [facility] Care Teams Accountant Tax Relationship Specialty Start Date End Date Fermin Townsend DO [address] [facility] [address] PCP - General Family Medicine 10/31/22
--- OUTSIDE RECORDS SUMMARY | 2025-03-05 10:24 | XMS_ITS | Encounter Summary ---
Author Organization [facility] ([place] / [place] / [place]) and Affiliates Address [address] [place] [address] Care Team Providers Care Freight Separator Name Role Phone Fermin Townsend DO Primary Care Provider Encounter Details Date Type Department Care Team (Late st Contact Info) Description 09/10/2021 Scanned Document [facility] PHILOSOPHY FACULTY Social History Tobacco Use Types Packs/Day Years [...] documented as of this encounter Care Teams Freight Separator Relationship Specialty Start Date End Date Fermin Townsend DO [address] [place] [phone] PCP - General Family Practice 05/24/21 documented as of this encounter
--- OUTSIDE RECORDS SUMMARY | 2025-03-05 10:24 | XMS_ITS | Encounter Summary ---
Author Organization [facility] ([place] / [place] / [place]) and Affiliates Address [address] [place] [address] Care Team Providers Care Cocoa Powder Mixer Operator Name Role Phone Fermin Townsend DO Primary Care Provider [phone] Encounter Details Date Type Department Care Team (Late st Contact Info) Description 06/11/2023 Scanned Document [facility] SCHOOL COORDINATOR Social History Tobacco Use Types Packs/Day Years Used Date Smoking Tobacco: Never Assessed Drug Use (DAST) Answer Date Recorded DAST Total Score Not on file 2023 Sex and Gender Information Value Date Recorded [...] has been complete d for the patient 01/05/2023 4:11 PM PDT documented as of this encounter Care Teams Cocoa Powder Mixer Operator Relationship Specialty Start Date End Date Fermin Townsend DO [address] [place] [phone] PCP - General Family Practice 05/24/21 documented as of this encounter
--- OUTSIDE RECORDS SUMMARY | 2025-03-05 10:24 | XMS_ITS | Encounter Summary ---
Author Organization [facility] ([place] / [place] / [place]) and Affiliates Address [address] [place] [address] Care Team Providers Care Server Name Role Phone Fermin Townsend DO Primary Care Provider Encounter Details Date Type Department Care Team (Late st Contact Info) Description 08/07/2023 Scanned Document [facility] IMPORT CUSTOMER SERVICE MANAGER Social History Tobacco Use Types Packs/Day Years [...] documented as of this encounter Care Teams Server Relationship Specialty Start Date End Date Fermin Townsend DO [address] [place] [phone] PCP - General Family Practice 05/24/21 documented as of this encounter
--- OUTSIDE RECORDS SUMMARY | 2025-03-05 10:24 | XMS_ITS | Clinical Summary ---
Author Organization [facility] Address [address] [place] [address] Care Team Providers Care Medical Record Specialist Name Role Phone Pcp, No Primary Care Provider Unavailabl e Allergies Active Allergy Reactions Criticality Noted Date Comments Amoxicillin *Unknown - Pt Doesn't Remember 11/20 Medications adapalene (DIFFERIN) 0.1 % cream Apply 1 Application topically to affected area(s). Active budesonide-form oteroL (SYMBICORT) 80-4.5 mcg/actuation (80-4.5 mcg each actuation) inhaler Inhale 2 Puffs by mouth every 12 hours. Active loratadine (CLARITIN) 10 mg tablet Take 10 mg by mouth. Active fluticasone (50 mcg per actuation) nasal solution (FLONASE) Inhale into affected nostril(s). Active Active Problems No known active problems Social History Tobacco Use Types Packs/Day Years Used Date Smoking Tobacco: Never Smokeless Tobacco: Never Tobacco Cessation:Counseling Given: Yes Alcohol Use Standard Drinks/Week Comments Yes 0 (1 standard drink = 0.6 oz pur e alcohol) 5 drinks weekly Sex and Gender Information Value Date Recorded Sex Assigned at Not on file Legal Sex Male 12:47 PM CDT Gender Identity Not on file Sexual Orientation Not on file Obstetrics History Last Filed Vital Signs Vital Sign Reading Time Taken Comments Blood Pressure 99/65 08/10/2024 3:49 PM PACKAGE WINDER Pulse 72 08/10/2024 3:49 PM PACKAGE WINDER Temperature 36.5 C (97.7 F) 08/10/2024 3:49 PM PACKAGE WINDER Respiratory Rate - - Oxygen Saturation 97% 08/10/2024 3:49 PM PACKAGE WINDER Inhaled Oxygen Concentration - - Weight 58.8 kg (129 lb 9.6 oz) 08/10/2024 3:49 P M PACKAGE WINDER Height 180.5 cm (5' 11.06) 08/10/2024 3:[address] Body Mass Index 18.04 08/10/2024 3:49 PM PACKAGE WINDER Plan of Treatment Health Maintenance Due Date Last Done Comments Well Child Check for age 3-20 02/03/2008 Tetanus booster 2016 Depression screening for age 12+ 2017 HIV for age 15-65 2020 HPV series for age 9-45 (1 - Male 3-dose series) 2020 Hepatitis C screening for ag e 18-79 2023 Hepatitis B series for 19+ ( 1 of 3 - 19+ 3-dose series) 2024 COVID-19 vaccine series ( season) 2025 06/17/2021, 12/07/2020, 11/09/2020 Influenza Vaccine (#1) 2025 BMI (ht and wt on same day) for age 18+ 08/10/2025 08/10/2024 RSV vaccine for adults or (1 - 1-dose 75+ series) 2080 Meningococcal series for age 11-21 Aged Out No longer eligible b ased on patient's age to complete this topic Pneumococcal series for age 6-49 Aged Out No longer eligible b ased on patient's age to complete this topic Insurance [place] [address] CROSS OF NON-MS-ITS Care Teams Medical Record Specialist Relationship Specialty Start Date End Date Pcp, No . PCP - General 08/10/24
--- NOTE | 2025-03-05 11:25 | ED.GENADULT ---
HPI - General Adult General Chief complaint: Shortness of Breath/Dyspnea Stated complaint: shortness of breath Time Seen by Provider: 03/05/25 11:24 History of Present Illness HPI narrative: patient has been having some SOB and CP that is worse over the past couple of days. was running and needed to stop when running. hx of Art features 37mm aortic valve. having barriers like unable to take a full breath. noted the breathing is shallower and no able to get a full breath. denies cough or fever. feels sob just talking to staff. sees a insights manager every year in [facility]. CP?both sides of chest and today more on the left side. taking a DB feels like a wall so unable to do that. 20-year-old young man presenting to the emergency department with concern shortness of breath. During cross-country race 2 days ago about a mi into the race began to feel a get hard time breathing. Pushed through and finished the 8 K race with a poorer than normal time. Underlying history also of asthma. Uses Symbicort regularly usually before runs so at least daily and then can use it as a rescue inhaler. These symptoms though would seem atypical for asthma. Does not appear to have allergies flaring nor has he had any cough or cold symptoms recently. Also yesterday tried to run again but symptoms developed shortly after running. Kind of feeling like he was hitting a wall with his breathing. Was noted to be breathing shallower. Had to abort run today with onset of symptoms shortly after starting. Normally does run 50 miles a week without difficulty. Admittedly is having a hard time taking a deep breath. No tachycardia or dizziness or lightheadedness was noted. Sometime back was experiencing some chest discomfort and abdominal symptoms and was receiving some manipulation from an osteopathic physician. Was also monitored at some point I believe with maybe 30 days of cardiac monitoring without event. 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 Related Data Home Medications ?Medication ?Instructions ?Recorded ?Confirmed symbacort 1 puff .PRN 03/05/25 Previous Rx's ?Medication ?Instructions ?Recorded naproxen 375 mg tablet 375 mg PO BID PRN pain #30 tabs 03/05/25 Allergies Allergy/AdvReac Type Severity Reaction Status Date / Time No Known Drug Allergies Allergy Verified 03/05/25 10:40 Review of Systems Status of ROS: Reports: 6 or more systems reviewed and unremarkable except as noted in History and below Exam Narrative: Exam Narrative: Pleasant. NAD. Slim, lanky. Lightly labored intermittently in his breathing. Cranial nerves 2-12 intact. Neck is supple without lymphadenopathy. No supraclavicular crepitus. Lungs are clear with breath sounds throughout. Heart in regular rate and rhythm without murmur rub or gallop. Abdomen is flat. Ticklishness limits exam but does not appear to have any abdominal tenderness. Extremities are well perfused without edema. Const: Vital Signs, click to edit/add: Vital Signs - 24 hr 03/05/25 10:30 03/05/25 10:52 03/05/25 11:00 Temperature 98.9 F Pulse Rate Pulse Rate [Pulse Oximeter] 70 Respiratory Rate 18 11 L 17 Blood Pressure Blood Pressure [Ri ght Upper Arm] 109/73 Pulse Oximetry 97 Oxygen Delivery Me thod Room Air 03/05/25 11:15 03/05/25 11:30 03/05/25 11:45 Temperature Pulse Rate Pulse Rate [Pulse Oximeter] Respiratory Rate 21 12 25 H Blood Pressure Blood Pressure [Ri ght Upper Arm] Pulse Oximetry Oxygen Delivery Me thod 03/05/25 12:10 03/05/25 12:15 03/05/25 12:30 Temperature Pulse Rate Pulse Rate [Pulse Oximeter] 62 Respiratory Rate 18 13 16 Blood Pressure Blood Pressure [Ri ght Upper Arm] Pulse Oximetry 99 Oxygen Delivery Me thod Room Air 03/05/25 12:30 03/05/25 12:31 03/05/25 12:32 Temperature Pulse Rate 62 Pulse Rate [Pulse Oximeter] Respiratory Rate 19 12 14 Blood Pressure 112/79 Blood Pressure [Ri ght Upper Arm] Pulse Oximetry 99 Oxygen Delivery Me thod 03/05/25 12:45 03/05/25 13:15 03/05/25 13:30 Temperature Pulse Rate Pulse Rate [Pulse Oximeter] Respiratory Rate 5 L 9 L 13 Blood Pressure Blood Pressure [Ri ght Upper Arm] Pulse Oximetry Oxygen Delivery Me thod Documenting provider has reviewed patient's vital signs: yes Course Vital Signs Vital signs: Initial Vital Signs Temperature 98.9 F 03/05/25 10:30 Temperature Source Temporal Artery Scan 03/05/25 10:30 Pulse Rate 70 03/05/25 10:30 Respiratory Rate 18 03/05/25 10:30 Blood Pressure 109/73 03/05/25 10:30 Blood Pressure Mean 85 03/05/25 10:30 Blood Pressure Position Sitting 03/05/25 10:30 Pulse Oximetry 97 03/05/25 10:30 Oxygen Delivery Method Room Air 03/05/25 10:30 Vital Signs Temperature 98.9 F 03/05/25 10:30 Pulse Rate 70 03/05/25 10:30 Respiratory Rate 18 03/05/25 10:30 Blood Pressure 109/73 03/05/25 10:30 Pulse Oximetry 97 03/05/25 10:30 Oxygen Delivery Method Room Air 03/05/25 10:30 Temperature 98.9 F 03/05/25 10:30 Pulse Rate 62 03/05/25 12:31 Respiratory Rate 13 03/05/25 13:30 Blood Pressure 112/79 03/05/25 12:31 Pulse Oximetry 99 03/05/25 12:31 Oxygen Delivery Method Room Air 03/05/25 12:30 Medications Administered Medications: Discontinued Medications Generic Name Dose Route Start Last Admin Trade Name Freq PRN Reason Stop Dose Admin Sodium Chloride 500 mls @ 500 mls/hr 03/05/25 11:45 03/05/25 12:59 0.9 % Sodium Chloride 500 Ml IV 03/05/25 12:44 Infused .Q1H ONE Infusion Medical Decision Making [facility] Narrative Medical decision making narrative: Marfans and this dilated aortic root does potentially complicate this history. Primary concern might be vascular disruption, further dilatation. I would also have concerns of potential pneumothorax or pneumomediastinum. Pulmonary embolus of course in differential but less likely considering level of activity. Is demonstrating some degree of pleuritic pain but a little atypical. Does not seem to have respiratory symptoms that would have predisposed to a pneumonia but I suppose is possible as well. This does not appear to be primary ischemic cardiac event. May have been experiencing an arrhythmia but does not describe the secondary symptoms and not demonstrating arrhythmia on monitor here while still with persistent pleuritic discomfort. Not really typical for pericarditis; further EKG does not indicate that. Asthma flare would be in differential but no wheeze here today in nor is he describe any in this does not feel like worsening of asthma to him. Will monitor on site monitor. Check standard labs. IV contrasted scan of chest. Labs are reassuring. I did independently review CT imaging of chest. As requested, measured aortic root around 32 mm. This is not a measurement I have particular confidence in with this modality. No apparent pulmonary disease/infiltrate. Radiology over-read below INDICATION: HX OF Marfan`s, DILATED AORTIC ROOT, DYSPNEA COMPARISON: none TECHNIQUE: CT volumetric acquisition was performed of the thorax during intravenous infusion of 95 cc Isovue 370 nonionic intravenous contrast. Please note that all CT scans at this facility use dose modulation, iterative reconstruction, and/or weight-based dosing when appropriate to reduce radiation dose to as low as reasonably achievable. FINDINGS: The CT images are of acceptable quality and demonstrate normal uniform vascular enhancement within the pulmonary arteries. There are no suspicious filling defects which would indicate pulmonary thromboemboli. There is no evidence of pleural or pericardial fluid. The heart and thoracic aorta appear normal. There is no evidence of lymphadenopathy within the central mediastinum or within either axilla. On lung window settings, there is no evidence of pneumothorax. The pulmonary parenchyma has uniform density and there is no evidence of hemorrhage or pneumonia. IMPRESSION: No evidence of pulmonary thromboembolism. No aortic dissection. Mild prominence of the aortic root. Please note that all CT scans at this facility use dose modulation, iterative reconstruction, and/or weight-based dosing when appropriate to reduce radiation dose to as low as reasonably achievable. Dictated by Dylon Moreno MD @ 03/05/2025 1:03:00 PM Without further event during time of monitoring in the emergency department. Discussed findings or lack there of with Rovi and his parents. Discussed longer-term cardiac rhythm monitoring but this was decided against. We will try to arrange for outpatient echocardiogram. I would offer prednisone course given history of asthma and apparent pleuritic pain. Perhaps course of NSAIDs would be initial better course of action. This is preferred also by parents. This might be musculoskeletal but I have been unable to reproduce his discomfort. See patient discharge plan for further discussion Stay well-hydrated. We will be arranging an outpatient echocardiogram. Expect a call tomorrow morning from radiology department. Would anticipate you following these results up with Dr. Francis as discussed. In the meantime you can take naproxen 375 mg twice daily over the next 5 days. Might want to take it with a little bit of food. This should be available [id number] but I have also sent in a prescription to your pharmacy on record. Return for persistent but increasing shortness of breath or chest pain, new lightheadedness or dizziness. With history of abdominal/chest wall discomfort, you might be helped by osteopathic manipulation as per your question. Dr. Serra at the [facility] I understand does still do manipulations. You might inquire as to appointment availability with her. Dr. Francis might also have some recommendations. I am prescribing some prednisone for you from [facility] as requested. If you feel that you are experiencing wheeze or maybe cough symptoms that you might associate with an asthma exacerbation, consider starting this course of medication. Continue to take your Symbicort daily. I will call you if this COVID test is positive Lab Data Lab results reviewed: Yes I reviewed the patient's lab results Labs: Lab Results 03/05/25 03/05/25 Range/Units 10:50 14:04 WBC 6.12 (4.50-11.00) K/uL RBC 5.14 (4.30-5.90) m/uL Hgb 14.6 (13.5-17.5) gm/dL Hct 43.1 (37.0-53.0) % MCV 84 (80-100) fL MCH 28 (26-34) pg MCHC 34 (32-36) gm/dL RDW Coeff of Matt 12.7 (11.5-15.5) % Plt Count 206 (140-440) K/uL Neut % (Auto) 52.2 (42.0-72.0) % Lymph % (Auto) 35.1 (20-44) % [place] % (Auto) 8.5 (0.0-11.0) % Eos % (Auto) 3.3 (0.0-7.0) % Baso % (Auto) 0.7 (0.0-3.0) % Neut # (Auto) 3.20 (1.7-7.0) K/uL Lymph # (Auto) 2.15 (0.90-2.90) K/uL [place] # (Auto) 0.50 (0.00-0.90) K/UL Eos # (Auto) 0.20 (0.00-0.50) K/uL Baso # (Auto) 0.04 (0.00-0.30) K/uL Abs Immat Gran (auto) 0.01 (0.00-0.30) K/uL Imm/Tot Granulo (auto) 0.2 % D-Dimer Quant (PE/DVT) 0.07 (0.00-0.50) ug/ml Sodium 136 (135-149) mmol/L Potassium 4.0 (3.6-5.1) mmol/L Chloride 106 (96-114) mmol/L Carbon Dioxide 22 (20-32) mmol/L Anion Gap 8 (7-15) mEq/L BUN 18 (5-24) mg/dL Creatinine 0.7 (0.5-1.5) mg/dL Estimated Creat Clear 145.15 Estimated GFR 135 ml/min Glucose 94 (60-115) mg/dL Calcium 9.6 (8.4-10.6) mg/dL Troponin I 0.01 (0.01-0.04) ng/mL NT-Pro-B Natriuret Pep < 20 (See Note) pg/mL SARS-CoV-2 (PCR) Negative SARS-CoV-2 (Negative) ECG Data Attestation: I personally reviewed and interpreted this ECG as follows: (Normal sinus rhythm. Looks to be exhibiting early repolarization. Prominent QRS and T-waves consistent with body habitus I think. Rate of 64. Without apparent ischemic changes) Discharge Plan Discharge Clinical Impression: Chest pain, pleuritic Patient Disposition: Home, Self-Care Condition: Stable Additional Instructions: Stay well-hydrated. We will be arranging an outpatient echocardiogram. Expect a call tomorrow morning from radiology department. Would anticipate you following these results up with Dr. Francis as discussed. In the meantime you can take naproxen 375 mg twice daily over the next 5 days. Might want to take it with a little bit of food. This should be available [id number] but I have also sent in a prescription to your pharmacy on record. Return for persistent but increasing shortness of breath or chest pain, new lightheadedness or dizziness. With history of abdominal/chest wall discomfort, you might be helped by osteopathic manipulation as per your question. Dr. Serra at the [facility] I understand does still do manipulations. You might inquire as to appointment availability with her. Dr. Francis might also have some recommendations. I am prescribing some prednisone for you from [facility] as requested. If you feel that you are experiencing wheeze or maybe cough symptoms that you might associate with an asthma exacerbation, consider starting this course of medication. Continue to take your Symbicort daily. I will call you if this COVID test is positive Prescriptions: New naproxen 375 mg tablet 375 mg PO BID PRN (Reason: pain) Qty: 30 0RF No Action symbacort 1 puff .PRN Follow Up/Referrals: Provider,Not a Local [Primary Care Provider, Family Practice] Stand Alone Forms: trueEX Info Instructions
--- NOTE | 2025-03-05 11:45 | CRLHL7_ITS ---
For Patients: As a result of the 21st Century Cures Act, medical imaging exams and procedure reports are released immediately into your electronic medical record. You may view this report before your referring provider. If you have questions, please contact your health care provider. INDICATION: HX OF Marfan`s, DILATED AORTIC ROOT, DYSPNEA COMPARISON: none TECHNIQUE: CT volumetric acquisition was performed of the thorax during intravenous infusion of 95 cc Isovue 370 nonionic intravenous contrast. Please note that all CT scans at this facility use dose modulation, iterative reconstruction, and/or weight-based dosing when appropriate to reduce radiation dose to as low as reasonably achievable. FINDINGS: The CT images are of acceptable quality and demonstrate normal uniform vascular enhancement within the pulmonary arteries. There are no suspicious filling defects which would indicate pulmonary thromboemboli. There is no evidence of pleural or pericardial fluid. The heart and thoracic aorta appear normal. There is no evidence of lymphadenopathy within the central mediastinum or within either axilla. On lung window settings, there is no evidence of pneumothorax. The pulmonary parenchyma has uniform density and there is no evidence of hemorrhage or pneumonia. IMPRESSION: No evidence of pulmonary thromboembolism. No aortic dissection. Mild prominence of the aortic root. Please note that all CT scans at this facility use dose modulation, iterative reconstruction, and/or weight-based dosing when appropriate to reduce radiation dose to as low as reasonably achievable. Dictated by Dylon Moreno MD @ 03/05/2025 1:03:00 PM (Electronically Signed)
[2025-03-05 12:01] LABS: Hematocrit* 43.1 % (37.0-53.0); Hemoglobin* 14.6 gm/dL (13.5-17.5); Immature Granulocytes Abs Auto 0.01 K/uL (0.00-0.30); Immature Granulocytes Pct Auto 0.2 %; Lymphocytes Absolute Auto 2.15 K/uL (0.90-2.90); Mean Corpuscular HGB Conc 34 gm/dL (32-36); Mean Corpuscular Hemoglobin 28 pg (26-34); Mean Corpuscular Volume 84 fL (80-100); RDW Coefficient of Variation % 12.7 % (11.5-15.5); Red Blood Count* 5.14 m/uL (4.30-5.90); White Blood Count* 6.12 K/uL (4.50-11.00)
[2025-03-05 12:02] LABS: Slide Review Reflex No
[2025-03-05 12:13] LABS: Chloride* 106 mmol/L (96-114); Sodium* 136 mmol/L (135-149)
[2025-03-05 12:14] LABS: Potassium* 4.0 mmol/L (3.6-5.1)
[2025-03-05 12:16] LABS: Blood Urea Nitrogen* 18 mg/dL (5-24); Creatinine* 0.7 mg/dL (0.5-1.5); Est. Creatinine Clearance* 145.15; Estimated Glomerular Filt Rate 135 ml/min
[2025-03-05 12:17] LABS: Anion Gap 8 mEq/L (7-15); Calcium* 9.6 mg/dL (8.4-10.6); Carbon Dioxide* 22 mmol/L (20-32); Glucose* 94 mg/dL (60-115)
[2025-03-05 12:30] LABS: NT Pro B Type NatriureticPept* < 20 pg/mL (See Note)
[2025-03-05] MEDS: 0.9 % SODIUM CHLORIDE 500 ML 500 ML IV (12:30)
[2025-03-05 12:41] LABS: D Dimer Quantitative* 0.07 ug/ml (0.00-0.50)
[2025-03-05 14:56] LABS: SARS PCR* Negative SARS-CoV-2 (Negative)
== END 2025-03-05 14:27 | disposition home or self-care (01) ==
PROVIDERS: Emergency Provider Family Medicine
DX: R07.89 Other chest pain (principal); R07.81 Pleurodynia
CPT/HCPCS: 36415; 71275; 80048; 83880; 84484; 85025; 85379; 87635; 93005; 99284; 99285; J7030; Q9967